=== PATIENT | female | born 1955 | race Caucasian/White ===

== ENCOUNTER 2017-12-30 04:34 | Inpatient (IN) | payer BC, OTHER ==
[2017-12-30] MEDS ORDERED: Ondansetron ODT 8 MG TAB ONE (05:04)
[2017-12-30 05:19] LABS: #Eosinphils 0.1 thou/uL (0.0-0.7); #Lymphocytes 0.9 thou/uL (1.20-3.40); #Monocytes 0.5 thou/uL (0.11-0.59); %Basophils 0.7 % (0.0-1.0); %Eosinophils 0.9 % (0.0-10.0); %Lymphocytes 13.9 % (21.0-51.0); %Neutrophils 77.5 % (42.0-75.0); Hemoglobin 14.4 g/dL (12.0-16.0); Mean Corpuscular Hemoglobin 32.9 pg (27.0-31.0); Mean Corpuscular Volume 96.8 fL (78.0-98.0); Mean Platelet Volume 8.2 fL (7.4-10.4); Platelet Count 189 thou/uL (130-400); RBC Distribution Width 12.9 % (11.5-14.5); Red Blood Cell (RBC) Count 4.37 mill/uL (4.20-5.40); White Blood Cell (WBC) Count 6.4 thou/uL (4.8-10.8)
[2017-12-30 05:42] LABS: ALT (SGPT) 61 U/L (8-55); AST (SGOT) 50 U/L (5-34); Albumin 4.2 g/dL (3.5-5.0); Alkaline Phosphatase 88 U/L (40-150); Anion Gap 14 mmol/L (10-20); BUN (Urea Nitrogen) 14 mg/dL (9.8-20.1); Bilirubin, Total 1.4 mg/dL (0.2-1.2); Calc. Creatinine Clearance 0 mL/min (70-130); Calcium 10.1 mg/dL (7.8-10.44); Carbon Dioxide 25 mmol/L (22-29); Chloride 105 mmol/L (98-107); Estimated GFR-MDRD 75; Globulin 3.1 g/dL (2.4-3.5); Glucose 143 mg/dL (70-105); Lipase 20 U/L (8-78); Potassium 4.2 mmol/L (3.5-5.1); Protein, Total 7.3 g/dL (6.0-8.3); Sodium 140 mmol/L (136-145)
[2017-12-30 06:30] LABS: Bilirubin Negative (Negative); Blood, Urine Negative (Negative); Clarity CLEAR (Clear); Glucose, Urine (Dipstick) Negative (Negative); Leukocyte Negative (Negative); Nitrite Negative (Negative); Protein, Urine (Dipstick) Negative (Neg-Trace); Specific Gravity, Urine 1.031 (1.002-1.036); Urobilinogen 0.2 mg/dL (0.2-1.0)
[2017-12-30] MEDS ORDERED: Lidocaine Viscous Sol 2% 15 ml UD Cup ONE (07:27)
[2017-12-30] MEDS ORDERED: Promethazine HCl 25 MG/ML VIAL ONE (08:19)
[2017-12-30] MEDS ORDERED: Ondansetron HCl/PF 4 MG/2 ML Vial IVP PRN ×2 (09:05→13:32)
[2017-12-30] MEDS ORDERED: Ondansetron ODT 4 MG TAB SL PRN (09:05)
[2017-12-30] MEDS ORDERED: Lactated Ringer's 1,000 ML IV SCH (09:15)
[2017-12-30 09:38] VITALS: BMI 24.7
--- NOTE | 2017-12-30 11:20 | CT ---
PRELIMINARY REPORT/[facility]/EMERGENTY AFTER-HOURS PROCEDURE CT Abdomen and Pelvis With Intravenous Contrast CLINICAL HISTORY: 62 years old, female; Pain; Abdominal pain; Generalized; Patient HX: Abd pain onset last night 1800 - progressivley worse - HX of crohns - pt concerned she has an sbo - HX of sbo. TECHNIQUE: Axial computed tomography images of the abdomen and pelvis with intravenous contrast. Coronal reforma tted images were created and reviewed. COMPARISON: No relevant prior studies available. FINDINGS: Lung bases: No acute findings. ABDOMEN: Liver: Hepatic attenuation suggesting steatosis. Gallbladder and bile ducts: Cholecystectomy. Mild intra-and extrahepatic biliary ductal dilatation ma y be related. Pancreas: Normal. Spleen: Normal. Adrenals: Normal. Kidneys and ureters: Normal. Stomach and bowel: Several dilated loops of small bowel in the left abdomen with distal feculent cont ent and transition point in the left lower quadrant. Decompressed distal small bowel. Mostly decompre ssed colon. Minimal mesenteric fluid among the dilated loops. PELVIS: Appendix: Appendix not definitely identified. Cecal sutures noted. Several fecaliths noted within a f luid containing structure which appears to be the inferior cecum. Bladder: Unremarkable. Reproductive: Hysterectomy. ABDOMEN and PELVIS: Intraperitoneal space: Small amount of free fluid in the pelvis. No free air. Bones/joints: Unremarkable. No acute fracture. Soft tissues: Unremarkable. Vasculature: Unremarkable. Lymph nodes: Unremarkable. No enlarged lymph nodes. IMPRESSION: 1. Findings compatible with small bowel obstruction. 2. Fecaliths within a fluid containing structure in the right lower quadrant which appears to be the inferior cecum. Appendix not definitely identified. No surrounding inflammatory changes appreciated. Thank you for allowing us to participate in the care of your patient. Dictated and Authenticated by: Denis Graham MD 12/30/2017 6:28 AM Central Time ([place] & [place]) FINAL REPORT: ABDOMEN CT WITH CONTRAST PELVIC CT WITH CONTRAST: History: Abdominal pain. History of Crohn's disease. Evaluate for small bowel obstruction. Comparison: 10-10-16 FINDINGS: This report is in agreement with the preliminary report by [facility]. There is evidence of a small bowel ob struction. Small bowel obstruction appears to involve the proximal to mid small bowel loops. The tra nsition point appears to be somewhere in the left lower quadrant. The distal small bowel loops are de compressed. Persistent densities in the cecum which may represent fecalith. Appendix is surgically ab sent. Gallbladder is surgically absent. No abnormalities with regards to the solid organs. There is free fl uid in the pelvis. POS: [facility]
--- NOTE | 2017-12-30 13:28 | CON ---
REASON CHIEF COMPLAINT: Nausea, vomiting, midepigastric pain. HISTORY OF PRESENT ILLNESS: This is a 62-year-old female with a diagnosis of Crohn's disease who had to have an ileocecectomy for this about 20 years ago. She has also had at least one exploratory lap arotomy and several episodes of small-bowel obstruction. She says it happens about 2-3 times per yea r. She normally sees Dr. Filipe Victor. Her last bowel movement was yesterday. She just passed a carina le bit of flatus. She says there is no pain at this time. PAST MEDICAL HISTORY: Crohn's disease, migraine headaches. PAST SURGICAL HISTORY: She has had a right hemicolectomy or ileocecectomy, a laparotomy, cholecystec barbra, total abdominal hysterectomy. MEDICATIONS: Azathioprine, propranolol, sumatriptan. ALLERGIES: and PSYLLIUM. SOCIAL HISTORY: She is . 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 FAMILY HISTORY: Breast cancer in her mom. PHYSICAL EXAMINATION: VITAL SIGNS: Temperature 98.6, pulse 73, blood pressure 93/62. GENERAL: She is a well-developed, well-nourished female in no apparent distress. She has an NG tube in that is draining minimal. LUNGS: Clear. HEART: Regular rate and rhythm. ABDOMEN: Slightly distended, nontender, no palpable masses. LABORATORY AND X-RAY FINDINGS: Her white count is 6.4, H&H 14 and 42, platelet count 189. Electroly pa are fine. CT scan shows some minimal dilated small bowel with a transition zone in the left lowe r quadrant. ASSESSMENT: Probable Crohn's stricture versus adhesion. PLAN: Recommend GI consultation to optimize medical therapy, but she seems to be responding with non surgical treatment.
[2017-12-30] MEDS ORDERED: Sodium Chloride 0.9% 1,000 ML IV SCH (13:32)
[2017-12-30] MEDS ORDERED: Acetaminophen 1,000 MG in Premix Bag 1 BAG IVPB SCH ×2 (14:30→22:00)
[2017-12-30] MEDS: Potassium Chloride 10 MEQ in Dextrose 5 % And 0.9 % NaCl 1,000 ML IV SCH ×2 (14:39→23:57)
[2017-12-30] MEDS ORDERED: SUMAtriptan Succinate 6 MG/0.5 ML VIAL SC SCH (17:00)
[2017-12-30] MEDS ORDERED: SUMATRIPTAN 6 MG SC SCH (17:00)
[2017-12-30] MEDS: Famotidine/PF 20 mg/2ml Vial SLOW IVP SCH (20:36)
--- NOTE | 2017-12-31 01:12 | CON ---
DATE OF CONSULTATION: 12/30/2017 HISTORY OF PRESENT ILLNESS: Patient is a 62-year-old female well known to me from a long h istory of Crohn disease. She was in her normal state of health until the day prior to admission when she developed diffuse abdominal bloating and discomfort. She had one episode of vomiting prior to c oming to the hospital. She has not lost any weight. She had no melena, hematochezia, no hematemesis . PAST MEDICAL HISTORY: Includes Crohn disease, migraine headaches, ileocolonic stricture with recent dilatation in 06/2017. PAST SURGICAL HISTORY: Right hemicolectomy, cholecystectomy, hysterectomy. MEDICATIONS: Azathioprine, propranolol. ALLERGIES: Include PSYLLIUM and . SOCIAL HISTORY: She is . She does not smoke or drink. FAMILY HISTORY: Negative for GI or liver disease. REVIEW OF SYSTEMS: Constitutional: No fever, chills, no weight loss. Eyes: No blurred vision or d ouble vision. ENT: No sore throat or earaches. Cardiovascular: No chest pain or palpitations. Pu lmonary: No shortness of breath, cough or wheezing. Gastrointestinal: See above. : No hematuri a or dysuria. Musculoskeletal: No joint pain. Neurologic: No numbness or seizure activity. Skin: No rashes. PHYSICAL EXAMINATION: GENERAL: Shows an ill-appearing white female in no acute distress. VITAL SIGNS: Temperature 98.8, pulse 65, respiratory rate 16, blood pressure 105/67. HEENT: Significant for nasogastric tube in right naris. NECK: Supple. CHEST: Clear. CARDIOVASCULAR: Regular rate and rhythm. ABDOMEN: Soft. Diffusely tender and slightly protuberant, some tympany. Bowel sounds are present. RECTAL: Deferred. EXTREMITIES: Normal. NEUROLOGIC: Nonfocal. LABORATORY DATA: Shows essentially normal CBC. Chemistries shows glucose 143, total bilirubin of 1. 4, AST of 50, ALT of 61. Urinalysis is normal. IMAGING: CT abdomen and pelvis shows findings consistent with a small-bowel obstruction, which seems to involve the left abdomen. There is decompressed small bowel distally. ASSESSMENT: 1. Small-bowel obstruction. 2. Crohn disease. 3. History of ileocolonic anastomotic stricture. 4. Migraine headaches. RECOMMENDATIONS: 1. Gastrografin small bowel series tomorrow. 2. This will dictate further management.
[2017-12-31 05:15] LABS: #Eosinphils 0.1 thou/uL (0.0-0.7); #Monocytes 0.3 thou/uL (0.11-0.59); #Neutrophils 1.8 thou/uL (1.40-6.50); %Basophils 1.1 % (0.0-1.0); %Eosinophils 3.6 % (0.0-10.0); %Lymphocytes 31.5 % (21.0-51.0); %Monocytes 9.8 % (0.0-10.0); Hemoglobin 12.3 g/dL (12.0-16.0); Mean Corpuscular HGB CONC 33.1 g/dL (32.0-36.0); Mean Corpuscular Hemoglobin 33.3 pg (27.0-31.0); Mean Platelet Volume 8.6 fL (7.4-10.4); Platelet Count 142 thou/uL (130-400); RBC Distribution Width 12.8 % (11.5-14.5); Red Blood Cell (RBC) Count 3.68 mill/uL (4.20-5.40); White Blood Cell (WBC) Count 3.3 thou/uL (4.8-10.8)
[2017-12-31] MEDS ORDERED: SUMATRIPTAN 6 MG/0.5 ML SC SCH (06:00)
[2017-12-31] MEDS: Potassium Chloride 10 MEQ in Dextrose 5 % And 0.9 % NaCl 1,000 ML IV SCH ×3 (06:10→20:55)
[2017-12-31 06:40] LABS: Anion Gap 6 mmol/L (10-20); BUN (Urea Nitrogen) 7 mg/dL (9.8-20.1); Calc. Creatinine Clearance 91 mL/min (70-130); Calcium 8.4 mg/dL (7.8-10.44); Carbon Dioxide 26 mmol/L (22-29); Chloride 111 mmol/L (98-107); Estimated GFR-MDRD 88; Glucose 110 mg/dL (70-105); Potassium 3.4 mmol/L (3.5-5.1); Sodium 140 mmol/L (136-145)
[2017-12-31] MEDS ORDERED: MD-Gastroview 120 ML BOT ONE (10:05)
[2017-12-31] MEDS: Famotidine/PF 20 mg/2ml Vial SLOW IVP SCH ×2 (11:51→20:56)
--- NOTE | 2017-12-31 12:45 | RAD ---
SMALL BOWEL FOLLOW THROUGH: 12/31/2017 HISTORY: Small bowel obstruction. COMPARISON: 10/11/2016 FINDINGS: [facility] [employer] imaging demonstrates a nasogastric tube terminating in the mid upper abdomen. Multiple rounded calcific densities overly the right lower quadrant, likely in the region of the cecum. The patient was administered Gastrografin via the nasogastric tube. the contrast media on immediate post injecti on imaging extends to the mid small bowel. By 15 minutes, there is contrast media throughout the sma ll bowel and contrast media has reached the colon by 30 minutes. IMPRESSION: Rapid transit of the Gastrografin from the stomach to the colon within 30 minutes. No evidence for b owel obstruction. POS: [facility]
--- NOTE | 2017-12-31 13:16 | PDOC.PN ---
- Subjective Encounter Start Date: 12/31/17 Encounter Start Time: 11:40 Subjective: no abd pain or nausea -: is passing flatus but no bm yet - Objective Resuscitation Status: Resuscitation Status FULL:Full Resuscitation MAR Reviewed: Yes Vital Signs & Weight: Vital Signs (12 hours) Temp Pulse Resp BP BP Pulse Ox 12/31/17 11:53 97.9 F 102 H 16 115/72 99 12/31/17 08:00 98.7 F 68 16 97 12/31/17 07:51 98.7 F 68 16 96/65 97 12/31/17 05:42 98.1 F 77 20 113/74 96 Weight Admit Weight 143 lb 14.4 oz Weight 143 lb 14.4 oz I&O: 12/30/17 12/31/17 01/01/18 06:59 06:59 06:59 Intake Total 1913 Output Total 250 Balance 1663 Result Diagrams: 12/31/17 04:02 12/31/17 04:02 Phys Exam - Physical Examination HEENT: PERRLA, moist MMs Neck: no JVD, supple Respiratory: no wheezing, no rales Cardiovascular: RRR, no significant murmur Gastrointestinal: soft, non-tender, positive bowel sounds Musculoskeletal: no edema, pulses present Neurological: non-focal, moves all 4 limbs Psychiatric: normal affect, A&O x 3 Dx/Plan (1) Small bowel obstruction Code(s): K56.69 - OTHER INTESTINAL OBSTRUCTION * DO NOT USE * Status: Acute (2) Crohns disease Code(s): K50.90 - CROHN'S DISEASE, UNSPECIFIED, WITHOUT COMPLICATIONS Status: Chronic Comment: prior ?right hemicolectomy (3) h/o ileocolic stricture Status: Chronic - Plan gastrograffin is -ve for sbo -: diet per GI advice, suggest start full liq -: iv fluids, morphine prn -: dc plan home in am if stable -: kdur x1 40meq * . Review of Systems - Medications/Allergies Allergies/Adverse Reactions: Allergies Allergy/AdvReac Type Severity Reaction Status Date / Time atropine sulfate Allergy Verified 10/10/16 20:08 [From ] dextrose [From Metamucil] Allergy Verified 10/10/16 20:08 hyoscyamine sulfate Allergy Verified 10/10/16 20:08 [From ] phenobarbital [From ] Allergy Verified 10/10/16 20:08 psyllium husk Allergy Verified 10/10/16 20:08 [From Metamucil] psyllium seed Allergy Verified 10/10/16 20:08 [From Metamucil] scopolamine hydrobromide Allergy Verified 10/10/16 20:08 [From ] sucrose [From Metamucil] Allergy Verified 10/10/16 20:08 Medications: Current Medications Famotidine (Pepcid) 20 mg SLOW IVP Q12HR [facility] Last Admin: 12/31/17 11:51 Dose: 20 mg Potassium Chloride 10 meq/ (Dextrose/Sodium Chloride) 1,005 mls @ 125 mls/hr IV .Q8H3M [facility] Last Admin: 12/31/17 08:05 Dose: 1,005 mls Morphine Sulfate (Morphine) 2 mg SLOW IVP Q4H PRN PRN Reason: Pain Ondansetron HCl (Zofran) 4 mg IVP Q6H PRN PRN Reason: Nausea/Vomiting Last Admin: 12/31/17 11:51 Dose: 4 mg
[2017-12-31] MEDS ORDERED: Potassium Chloride 20 MEQ TAB PO SCH (13:30)
--- NOTE | 2017-12-31 13:34 | PRG ---
DATE OF SERVICE: 12/31/2017 SUBJECTIVE: The patient is feeling better. She had multiple bowel movements after drinking Gastrogr afin. She has had no nausea or vomiting. OBJECTIVE: VITAL SIGNS: Temperature 97.9, pulse 102, respiratory rate 16, blood pressure 115/72. CHEST: Clear. CARDIOVASCULAR: Regular rate and rhythm. ABDOMEN: Soft, nontender, without organomegaly or masses. LABORATORY DATA: Shows a white blood cell count 3.3, hemoglobin 12.3, hematocrit 37.0, potassium 3.4 . The small bowel series showed a quick transit of the Gastrografin, no bowel obstruction. ASSESSMENT: 1. Small-bowel obstruction - resolved. 2. Crohn's disease. PLAN: 1. Begin clear liquids, advance as tolerated. 2. Home tomorrow morning if tolerating diet.
[2018-01-01 04:48] LABS: #Eosinphils 0.1 thou/uL (0.0-0.7); #Lymphocytes 1.1 thou/uL (1.20-3.40); #Monocytes 0.4 thou/uL (0.11-0.59); #Neutrophils 1.5 thou/uL (1.40-6.50); %Basophils 1.3 % (0.0-1.0); %Eosinophils 3.7 % (0.0-10.0); %Lymphocytes 34.1 % (21.0-51.0); %Monocytes 11.3 % (0.0-10.0); %Neutrophils 49.7 % (42.0-75.0); Hemoglobin 11.4 g/dL (12.0-16.0); Mean Corpuscular HGB CONC 33.5 g/dL (32.0-36.0); Mean Corpuscular Volume 98.6 fL (78.0-98.0); Mean Platelet Volume 7.8 fL (7.4-10.4); Platelet Count 140 thou/uL (130-400); RBC Distribution Width 12.8 % (11.5-14.5); Red Blood Cell (RBC) Count 3.46 mill/uL (4.20-5.40); White Blood Cell (WBC) Count 3.1 thou/uL (4.8-10.8)
[2018-01-01 04:56] LABS: Anion Gap 9 mmol/L (10-20); BUN (Urea Nitrogen) 4 mg/dL (9.8-20.1); Calc. Creatinine Clearance 95 mL/min (70-130); Calcium 8.8 mg/dL (7.8-10.44); Carbon Dioxide 25 mmol/L (22-29); Chloride 113 mmol/L (98-107); Estimated GFR-MDRD Greater than 90; Glucose 104 mg/dL (70-105); Potassium 3.9 mmol/L (3.5-5.1); Sodium 143 mmol/L (136-145)
[2018-01-01] MEDS: Potassium Chloride 10 MEQ in Dextrose 5 % And 0.9 % NaCl 1,000 ML IV SCH (06:05)
--- NOTE | 2018-01-01 06:08 | PDOC.EVN ---
Event Note - Event Note Event Note: H&P dictated, admit for abd pain, n/V, abd distention, similar to past SBO episdoes. NGT placed in ER, feeling much better. Seen gy Dr Amor - recommended GI consult and he ordered
[2018-01-01] MEDS: Famotidine/PF 20 mg/2ml Vial SLOW IVP SCH (08:30)
[2018-01-01] MEDS ORDERED: AZATHIOPRINE 100 MG PO SCH (09:00)
[2018-01-01] MEDS ORDERED: Propranolol HCl LA 60 MG CAP PO SCH (09:00)
[2018-01-01] MEDS ORDERED: azaTHIOprine 50 MG TAB PO SCH (09:00)
--- NOTE | 2018-01-01 10:52 | PDOC.PN ---
- Subjective Encounter Start Date: 01/01/18 Encounter Start Time: 07:40 Subjective: is passing liq stools, no nausea -: tolerating oral diet - Objective Resuscitation Status: Resuscitation Status FULL:Full Resuscitation MAR Reviewed: Yes Vital Signs & Weight: Vital Signs (12 hours) Temp Pulse Resp BP Pulse Ox 01/01/18 08:00 98.0 F 57 L 16 108/56 L 98 01/01/18 07:27 98.0 F 57 L 16 96 01/01/18 04:35 98.1 F 60 16 98/62 96 Weight Admit Weight 143 lb 14.4 oz Weight 143 lb 14.4 oz I&O: 12/31/17 01/01/18 01/02/18 06:59 06:59 06:59 Intake Total 1913 3900 Output Total 250 Balance 1663 3900 Result Diagrams: 01/01/18 04:31 01/01/18 04:31 Phys Exam - Physical Examination HEENT: PERRLA, moist MMs Neck: no JVD, supple Respiratory: no wheezing, no rales Cardiovascular: RRR, no significant murmur Gastrointestinal: soft, non-tender, no distention, positive bowel sounds Musculoskeletal: no edema, pulses present Neurological: non-focal, moves all 4 limbs Psychiatric: normal affect, A&O x 3 Dx/Plan (1) Small bowel obstruction Code(s): K56.69 - OTHER INTESTINAL OBSTRUCTION * DO NOT USE * Status: Acute (2) Crohns disease Code(s): K50.90 - CROHN'S DISEASE, UNSPECIFIED, WITHOUT COMPLICATIONS Status: Chronic Comment: prior ?right hemicolectomy (3) h/o ileocolic stricture Status: Chronic - Plan hemostable -: dc pt home -: to f/u with in 4 weeks * . Review of Systems - Medications/Allergies Allergies/Adverse Reactions: Allergies Allergy/AdvReac Type Severity Reaction Status Date / Time atropine sulfate Allergy Verified 10/10/16 20:08 [From ] dextrose [From Metamucil] Allergy Verified 10/10/16 20:08 hyoscyamine sulfate Allergy Verified 10/10/16 20:08 [From ] phenobarbital [From ] Allergy Verified 10/10/16 20:08 psyllium husk Allergy Verified 10/10/16 20:08 [From Metamucil] psyllium seed Allergy Verified 10/10/16 20:08 [From Metamucil] scopolamine hydrobromide Allergy Verified 10/10/16 20:08 [From ] sucrose [From Metamucil] Allergy Verified 10/10/16 20:08 Medications: Current Medications Azathioprine (Imuran) 100 mg PO DAILY [facility] Last Admin: 01/01/18 08:33 Dose: 100 mg Famotidine (Pepcid) 20 mg SLOW IVP Q12HR [facility] Last Admin: 01/01/18 08:30 Dose: 20 mg Potassium Chloride 10 meq/ (Dextrose/Sodium Chloride) 1,005 mls @ 125 mls/hr IV .Q8H3M [facility] Last Admin: 01/01/18 06:05 Dose: Not Given Morphine Sulfate (Morphine) 2 mg SLOW IVP Q4H PRN PRN Reason: Pain Ondansetron HCl (Zofran) 4 mg IVP Q6H PRN PRN Reason: Nausea/Vomiting Last Admin: 12/31/17 11:51 Dose: 4 mg Propranolol HCl (Inderal La) 60 mg PO DAILY [facility] Last Admin: 01/01/18 08:31 Dose: 60 mg Sodium Chloride (Flush - Normal Saline) 10 ml IVF Q12HR [facility] Last Admin: 01/01/18 08:32 Dose: 10 ml Sodium Chloride (Flush - Normal Saline) 10 ml IVF PRN PRN PRN Reason: Saline Flush
[2018-01-01 12:13] VITALS: BP 102/66; TEMP 98.2
--- NOTE | 2018-01-02 02:18 | DIS ---
DATE OF ADMISSION: 12/30/2017 DATE OF DISCHARGE: 01/01/2018 DISCHARGE DISPOSITION: To home. PRIMARY DISCHARGE DIAGNOSES: Small-bowel obstruction, resolved, history of Crohn's disease with prior right hemicolectomy and ileocolic stricture. PROCEDURES DONE DURING HOSPITALIZATION: Abdominal and pelvic CAT scan done on the showed signs of small-bowel obstruction with transition point to be somewhere in the left lower quadrant, small bowel. Follow through x-ray done on 12/31/2017 showed rapid transit of Gastrografin from stomach to colon within 30 minutes. No evidence of bowel obstruction was seen. H&H 11 and 34, platelet count 140, white count of 3.1, MCV is 98. Discharge BUN and creatinine 4 and 0.6. INPATIENT CONSULTS: Dr. Amor for General Surgery, Dr. Victor for Gastroenterology. DISCHARGE MEDICATIONS: 1. Azathioprine 100 mg p.o. daily, propranolol extended release 60 mg p.o. daily, sumatriptan p.r.n. for migraine. ALLERGIES: ATROPINE, DEXTROSE, HYOSCYAMINE, PHENOBARBITAL, PSYLLIUM HUSK and SEED. DISCHARGE PLAN: The patient to follow up with Dr. Victor as advised and primary care physician in 1 week. BRIEF COURSE DURING HOSPITALIZATION: The patient initially came to ER on the with complaints of abdominal pain, which was cramping in nature. She has had prior history of bowel obstruction with history of Crohn's disease and prior abdominal surgery. A CT abdomen done in the ER revealed small-bowel obstruction. Dr. Amor was consulted from ER and Dr. Newman from [facility] was called for admission. She was kept n.p.o. and was placed on IV fluids. She has had consultation with Dr. Amor as well for General Surgery and Dr. Victor for Gastroenterology. Patient was passing flatus for the initial 24 hours. She has had a small bowel followed through x-ray done on the , which showed good transit of contrast into colon. The patient had 3-4 loose bowel movements after the follow-through x-ray. She was placed on oral diet and has been tolerating it well. She is also ambulating and eating well. She will be shortly discharged home if cleared by Dr. Victor. Please see a face- to-face documentation on [facility] for the day of discharge. [facility]
== END 2018-01-01 12:52 | disposition home or self-care (01) | DRG 386 ==
LOC: ERS 04:34 → T4-B 08:40
PROVIDERS: ADMIT Internal Medicine Infectious Disease; ATTEND Internal Medicine Infectious Disease
PROC: BD13YZZ Fluoroscopy of Small Bowel using Other Contrast (ICD-10-PCS; principal; 2017-12-31)
DX: K50.912 Crohn's disease, unspecified, with intestinal obstruction (principal); G43.909 Migraine, unspecified, not intractable, without status migrainosus; Z98.0 Intestinal bypass and anastomosis status; Z90.49 Acquired absence of other specified parts of digestive tract
CPT/HCPCS: 36415; 74177; 74250; 80048; 80053; 81003; 83690; 85025; 96361; 96374; 96375; A4216; J0131; J2270; J2405; J2550; J3030; J3480; J7042; J7500; S0028

== ENCOUNTER 2018-10-23 07:26 | Observation (INO) | payer BC ==
[2018-10-23 08:09] LABS: #Eosinphils 0.1 thou/uL (0.0-0.7); #Lymphocytes 1.4 thou/uL (1.20-3.40); #Monocytes 0.7 thou/uL (0.11-0.59); #Neutrophils 11.3 thou/uL (1.40-6.50); %Basophils 0.3 % (0.0-1.0); %Eosinophils 0.4 % (0.0-10.0); %Lymphocytes 10.1 % (21.0-51.0); %Monocytes 5.3 % (0.0-10.0); %Neutrophils 83.9 % (42.0-75.0); Hemoglobin 16.3 g/dL (12.0-16.0); Mean Corpuscular HGB CONC 33.5 g/dL (32.0-36.0); Mean Corpuscular Hemoglobin 32.5 pg (27.0-31.0); Mean Platelet Volume 8.5 fL (7.4-10.4); Platelet Count 226 thou/uL (130-400); RBC Distribution Width 13.2 % (11.5-14.5); White Blood Cell (WBC) Count 13.4 thou/uL (4.8-10.8)
[2018-10-23] MEDS ORDERED: Ondansetron PF 4 MG/2 ML Vial ONE (08:25)
[2018-10-23] MEDS ORDERED: Morphine 4 MG/ML VIAL ONE (08:34)
[2018-10-23 08:36] LABS: ALT (SGPT) 46 U/L (8-55); AST (SGOT) 41 U/L (5-34); Albumin 4.4 g/dL (3.4-4.8); Alkaline Phosphatase 95 U/L (40-150); Anion Gap 15 mmol/L (10-20); BUN (Urea Nitrogen) 16 mg/dL (9.8-20.1); Bilirubin, Total 1.2 mg/dL (0.2-1.2); Calc. Creatinine Clearance 0 mL/min (70-130); Calcium 10.3 mg/dL (7.8-10.44); Carbon Dioxide 21 mmol/L (23-31); Chloride 106 mmol/L (98-107); Estimated GFR-MDRD 75; Globulin 3.1 g/dL (2.4-3.5); Glucose 170 mg/dL (80-115); Lipase 18 U/L (8-78); Potassium 4.1 mmol/L (3.5-5.1); Protein, Total 7.5 g/dL (6.0-8.3); Sodium 138 mmol/L (136-145)
--- NOTE | 2018-10-23 09:31 | CT ---
Abdomen and pelvic CT scan with IV contrast: Lumbar spine CT scan with IV contrast Limited: HISTORY: Injury from a fall, abdominal pain, prior Crohn's disease COMPARISON: 12/30/2017, 05/06/2014 FINDINGS: The lung bases are clear. Minimal intraperitoneal fluid adjacent to the right lobe of the liver. Stat us post cholecystectomy with some dilatation of the common bile duct and intrahepatic ducts which appears to be somewhat worse than on the prior 2017 study. Small hiatal hernia. Pancreas spleen adren al glands are unremarkable. No renal calculus or obstruction. There is again noted be abnormally dilated small bowel with multiple remaining ossified opacities within the small bowel. There appears to be an ileal right colon anastomosis which appears to be quite narrowed. There is scattered gas and fecal material throughout the colon. These abnormal calcified opacities within the small bowel ar e less in number than dating back to 05/06/2014. IMPRESSION: Abnormal small bowel dilatation but showing little change from prior CTs dating back to 2013. Multipl e abnormal circumscribed concentric ossific opacities within the small bowel although somewhat less in number than on prior 2013 study. Postoperative anastomosis at the ileal cecal region which appears to be somewhat narrowed. Small hiatal hernia. Minimal ascites particularly around the right lobe of the liver. This is a new finding when compared to the prior 12/30/[address] scan with IV contrast Limited: IMPRESSION: Discogenic disease most marked at L2-L3 without evidence for acute fracture or dislocation.
[2018-10-23] MEDS ORDERED: Fentanyl 100 MCG/2 ML VIAL ONE (09:48)
[2018-10-23 09:57] LABS: Bilirubin Negative (Negative); Blood, Urine Trace (Negative); Glucose, Urine (Dipstick) Negative (Negative); Leukocyte Negative (Negative); Nitrite Negative (Negative); Protein, Urine (Dipstick) Negative (Neg-Trace); Urobilinogen 0.2 mg/dL (0.2-1.0); pH, Urine 7.5 (5.0-9.0)
[2018-10-23 09:58] LABS: Clarity Clear (Clear)
[2018-10-23 09:59] LABS: Specific Gravity, Urine 1.045 (1.002-1.036)
[2018-10-23 10:03] LABS: Bacteria/HPF None Seen HPF (None Seen); Hyaline Casts/LPF NONE SEEN LPF (0-3 Hyaline); Squamous Epithelial 0-3 HPF (0-3); WBC/HPF 0-3 HPF (0-3)
[2018-10-23] MEDS ORDERED: ISOVUE-370 76%-LOCM 1 ML ONE (10:42)
[2018-10-23] MEDS ORDERED: Lidocaine 2% Viscous Solution 10 ML, Aluminum & Magnesium Hydroxide 30 ML SSW SCH (11:00)
[2018-10-23] MEDS: Sodium Chloride 0.9% 1,000 ML IV SCH ×2 (11:14→21:30)
[2018-10-23] MEDS: Ondansetron PF 4 MG/2 ML Vial IVP PRN (11:14)
--- NOTE | 2018-10-23 11:18 | HP ---
PRIMARY CARE PROVIDER: Dr. Jonathon Vasquez. CHIEF COMPLAINT: Abdominal pain. HISTORY OF PRESENT ILLNESS: Ms. Crane is a pleasant 63-year-old lady, who was seen at [facility] on October 23, 2018. She reports that she has a history of Crohn disease. She also reports that she has a history of bowel obstructions. She reports that last night she started having burning sensation in the epigastric region. Around 2 a.m., she started vomiting. She reports vomiting 12 times. She denies any fevers or chills. She reports that the epigastric discomfort was 8/10 at its worst, nonradiating, no known aggravating or relieving factors. At the time of my examination, she reports that the sensation has resolved. REVIEW OF SYSTEMS: All other systems reviewed and found to be negative. PAST MEDICAL HISTORY: disease and migraine headaches. PAST SURGICAL HISTORY: Hemorrhoidectomy, cholecystectomy, hysterectomy, and partial small bowel resection. FAMILY HISTORY: No family history of premature coronary artery disease. SOCIAL HISTORY: The patient denies tobacco use, alcohol use, or recreational drug use. ALLERGIES: ATROPINE, DEXTROSE, , HYOSCYAMINE, METAMUCIL, PHENOBARBITAL, PSYLLIUM, SCOPOLAMINE, SUCROSE. CURRENT MEDICATIONS: 1. Propranolol 60 mg daily. 2. Azathioprine 100 mg daily. 3. Sumatriptan 100 mg as needed. PHYSICAL EXAMINATION: GENERAL: Ms. Crane is awake and alert, not in acute distress. VITAL SIGNS: Blood pressure is 123/73, pulse 72, respiratory rate 19, and oxygen saturation 99% on room air. She is afebrile. EYES: No scleral icterus. No conjunctival pallor. ENT: Dry mucosal membranes. No oropharyngeal erythema or exudates. NECK: Supple, nontender. Trachea is midline. RESPIRATORY: Accessory muscles of breathing are not active. Chest wall movements are symmetric bilaterally. Lungs are clear to auscultation without wheezes, rhonchi, or crepitations. CARDIOVASCULAR: S1 and S2 are heard, regular. Peripheral pulses palpable. No carotid bruit. No pericardial rub. ABDOMEN: Soft, mild epigastric tenderness. No guarding or rigidity. Bowel sounds are heard. No hepatomegaly. No splenomegaly. NEUROLOGIC: Cranial nerves 2 through 12 intact. Deep tendon reflexes 2+. MUSCULOSKELETAL: Power is 5/5 in all 4 extremities. SKIN: No rashes or subcutaneous nodules. LYMPHATIC: No cervical lymphadenopathy. PSYCHIATRIC: Normal mood. Normal affect. The patient is oriented to person, place, and time. LABORATORY DATA: Ms. Crane' labs and investigations were reviewed. She has leukocytosis with 13,400 white cells, of which 83% are neutrophils. Hemoglobin is elevated at 16.3. Platelet count is normal. Her last known hemoglobin was 11.4 on January 01, 2018. She has normal sodium, normal potassium, normal creatinine, mildly elevated AST of 41, otherwise unremarkable liver profile and elevated lactic acid level of 2.7. Urinalysis is negative for nitrite and leukocyte esterase. She also had CT scan of the abdomen and pelvis, which showed abnormal small-bowel dilatation, but little change from prior CTs dating back to 2013. She has minimal ascites, particularly around the right lobe of the liver. She also has multiple abnormal circumscribed concentric ossific opacities within the small bowel, somewhat less in number than a study from 2014. ASSESSMENT AND PLAN: Ms. Crane is a pleasant 63-year-old lady, who was seen at [facility] on October 23, 2018. Her problem list includes: 1. Abdominal pain: Etiology is unclear. The pain has resolved at this time. The patient reports having a bowel movement last night. There is no evidence of bowel obstruction on CT scan. We will admit her to hospital on observation status and start her on clear fluid diet. Most likely etiology of abdominal pain appears to be gastritis, most likely viral. We will provide intravenous hydration until the patient's oral intake improves. 2. Migraine: The patient has a history of migraine headaches. This appears to be stable. We will start sumatriptan p.r.n. as she takes at home. 3. Leukocytosis: Etiology is unclear. The patient is afebrile. No evidence of infection We will also check chest x-ray. Many thanks for allowing me to participate in your patient's care. Please feel free to contact me with any questions or concerns. LEVEL OF RISK: Moderate. LEVEL OF COMPLEXITY: Moderate. Job ID: [id number]
[2018-10-23 11:23] VITALS: BMI 24.9
--- NOTE | 2018-10-23 11:25 | RAD ---
CHEST 2 VIEWS: Date: 10/23/18 HISTORY: Crohn's disease, vomiting, and abdominal pain. FINDINGS: Heart size is within normal limits. The lungs are clear of acute process. Mild biapical pleural thick ening. IMPRESSION: No acute intrathoracic disease. Atherosclerosis of aorta. Stable from prior study. POS: [facility]
[2018-10-23] MEDS ORDERED: Lidocaine 2% Viscous Solution 20 ML, Aluminum & Magnesium Hydroxide 30 ML SSW SCH (12:00)
[2018-10-23 12:41] LABS: Lactic Acid 0.9 mmol/L (0.5-2.2)
[2018-10-23] MEDS: Acetaminophen 325 MG TAB PO PRN ×2 (19:20→23:43)
[2018-10-24 06:33] LABS: #Eosinphils 0.1 thou/uL (0.0-0.7); #Lymphocytes 1.4 thou/uL (1.20-3.40); #Monocytes 0.8 thou/uL (0.11-0.59); #Neutrophils 3.8 thou/uL (1.40-6.50); %Basophils 0.6 % (0.0-1.0); %Eosinophils 1.9 % (0.0-10.0); %Lymphocytes 23.5 % (21.0-51.0); %Monocytes 12.3 % (0.0-10.0); %Neutrophils 61.7 % (42.0-75.0); Hemoglobin 13.7 g/dL (12.0-16.0); Mean Corpuscular HGB CONC 33.3 g/dL (32.0-36.0); Mean Corpuscular Hemoglobin 33.1 pg (27.0-31.0); Mean Corpuscular Volume 99.4 fL (78.0-98.0); Mean Platelet Volume 8.5 fL (7.4-10.4); Platelet Count 166 thou/uL (130-400); RBC Distribution Width 13.1 % (11.5-14.5); Red Blood Cell (RBC) Count 4.14 mill/uL (4.20-5.40); White Blood Cell (WBC) Count 6.1 thou/uL (4.8-10.8)
[2018-10-24 06:43] LABS: Anion Gap 9 mmol/L (10-20); BUN (Urea Nitrogen) 8 mg/dL (9.8-20.1); Calc. Creatinine Clearance 89 mL/min (70-130); Calcium 8.3 mg/dL (7.8-10.44); Carbon Dioxide 24 mmol/L (23-31); Chloride 111 mmol/L (98-107); Estimated GFR-MDRD 86; Glucose 92 mg/dL (80-115); Potassium 3.8 mmol/L (3.5-5.1); Sodium 140 mmol/L (136-145)
[2018-10-24] MEDS: Sodium Chloride 0.9% 1,000 ML IV SCH (07:40)
[2018-10-24] MEDS: Acetaminophen 325 MG TAB PO PRN ×2 (07:41→11:46)
[2018-10-24] MEDS: Ondansetron PF 4 MG/2 ML Vial IVP PRN (07:41)
[2018-10-24 12:22] VITALS: BP 121/69; TEMP 98
[2018-10-24] MEDS ORDERED: Simethicone Chewable 80 MG TAB PO SCH (13:00)
== END 2018-10-24 15:49 | disposition home or self-care (01) ==
LOC: ERS 07:26 → 2SW 11:09
PROVIDERS: ADMIT Internal Medicine; ATTEND Internal Medicine
DX: R10.13 Epigastric pain (principal); G43.909 Migraine, unspecified, not intractable, without status migrainosus; K50.90 Crohn's disease, unspecified, without complications; D72.829 Elevated white blood cell count, unspecified; Z88.8 Allergy status to other drugs, medicaments and biological substances; Z79.899 Other long term (current) drug therapy
CPT/HCPCS: 36415; 71046; 74177; 80048; 80053; 81003; 81015; 83605; 83690; 85025; 96361; 96374; 96375; 96376; G0378; J2270; J2405; J3010; Q9966

== ENCOUNTER 2019-01-21 23:00 | Inpatient (IN) | payer BC ==
[2019-01-21] MEDS ORDERED: Morphine 2 MG/ML SYRINGE ONE (23:17)
[2019-01-21] MEDS ORDERED: Ondansetron PF 4 MG/2 ML Vial ONE (23:17)
[2019-01-21 23:24] LABS: Bacteria/HPF None Seen HPF (None Seen); Bilirubin Negative (Negative); Blood, Urine 1+ (Negative); Clarity Clear (Clear); Glucose, Urine (Dipstick) Normal (Negative); Leukocyte Negative Leu/uL (Negative); Nitrite Negative (Negative); Protein, Urine (Dipstick) 20 mg/dL (Neg-Trace); Urobilinogen Normal mg/dL (Less than 2); WBC/HPF 0-3 HPF (0-3)
[2019-01-21] MEDS ORDERED: Fentanyl 100 MCG/2 ML VIAL ONE (23:51)
[2019-01-22] LABS: #Eosinphils 0.1 thou/uL (0.0-0.7); #Monocytes 0.5 thou/uL (0.11-0.59); %Basophils 0.3 % (0.0-1.0); %Eosinophils 1.3 % (0.0-10.0); %Lymphocytes 11.1 % (21.0-51.0); %Neutrophils 81.3 % (42.0-75.0); Hemoglobin 15.8 g/dL (12.0-16.0); Mean Corpuscular HGB CONC 33.4 g/dL (32.0-36.0); Mean Corpuscular Hemoglobin 32.8 pg (27.0-31.0); Mean Corpuscular Volume 98.2 fL (78.0-98.0); Mean Platelet Volume 8.2 fL (7.4-10.4); Platelet Count 198 thou/uL (130-400); RBC Distribution Width 13.3 % (11.5-14.5); Red Blood Cell (RBC) Count 4.83 mill/uL (4.20-5.40); White Blood Cell (WBC) Count 8.6 thou/uL (4.8-10.8)
[2019-01-22 00:11] LABS: ALT (SGPT) 30 U/L (8-55); AST (SGOT) 28 U/L (5-34); Albumin 4.4 g/dL (3.4-4.8); Alkaline Phosphatase 100 U/L (40-150); Anion Gap 14 mmol/L (10-20); BUN (Urea Nitrogen) 11 mg/dL (9.8-20.1); Bilirubin, Total 1.6 mg/dL (0.2-1.2); Calc. Creatinine Clearance 0 mL/min (70-130); Calcium 9.8 mg/dL (7.8-10.44); Carbon Dioxide 23 mmol/L (23-31); Chloride 104 mmol/L (98-107); Estimated GFR-MDRD 73; Globulin 2.7 g/dL (2.4-3.5); Glucose 107 mg/dL (80-115); Potassium 3.7 mmol/L (3.5-5.1); Protein, Total 7.1 g/dL (6.0-8.3); Sodium 137 mmol/L (136-145)
[2019-01-22] MEDS ORDERED: Ondansetron PF 4 MG/2 ML Vial ONE (00:39)
[2019-01-22] MEDS ORDERED: Promethazine HCl 25 MG/ML VIAL ONE (00:54)
[2019-01-22] MEDS ORDERED: Benzocaine 20% Spray 60 ML CAN ONE (02:47)
[2019-01-22] MEDS ORDERED: Fentanyl 100 MCG/2 ML VIAL ONE (03:31)
[2019-01-22] MEDS ORDERED: Acetaminophen 650 MG Suppository PR PRN (05:33)
[2019-01-22] MEDS ORDERED: Ondansetron PF 4 MG/2 ML Vial IVP PRN (05:33)
[2019-01-22] MEDS ORDERED: Ondansetron ODT 4 MG TAB PO PRN (05:33)
[2019-01-22 05:43] VITALS: BMI 25.2
[2019-01-22] MEDS ORDERED: Fentanyl 100 MCG/2 ML VIAL SLOW IVP PRN (06:00)
--- NOTE | 2019-01-22 06:46 | HP ---
PRIMARY CARE PHYSICIAN: Dr. Jonathon Vasquez. CODE STATUS: Full code. TIME OF EVALUATION: 2:40 a.m. HISTORY OF PRESENT ILLNESS: This is a 63-year-old female patient with past medical history of Crohn disease, came to the hospital after having severe abdominal pain with no clear triggers. No alleviating factors. The pain started around 4 p.m. or 5 p.m. it is diffuse in the abdomen, but start mostly in the epigastric area radiating to the rest of the abdomen associated with nausea. REVIEW OF SYSTEMS: CONSTITUTIONAL: No fever, chills, or generalized weakness. RESPIRATORY: No cough, sputum production, or shortness of breath. CARDIOVASCULAR: No chest pain. GASTROINTESTINAL: The patient has nausea, vomiting, and abdominal pain, very severe as described in HPI. UTILITY SALES REPRESENTATIVE: No dizziness, headache, or feeling lightheaded. GENITOURINARY: No burning on urination. EXTREMITIES: No leg swelling reported in the extremities. All other systems were reviewed and negative except for the findings mentioned above. PAST MEDICAL HISTORY: Positive for Crohn disease and migraines. PAST SURGICAL HISTORY: Bowel resection, hemorrhoidectomy, cholecystectomy, hysterectomy, bladder mesh removal. PSYCHIATRIC HISTORY: No previous psych history. FAMILY HISTORY: Reviewed, noncontributory to current presentation SOCIAL HISTORY: The patient drinks socially. She denies any drug use. No smoking history. KNOWN ALLERGIES: , Metamucil, morphine, psyllium. REPORTED MEDICATIONS: 1. Propranolol. 2. Azathioprine. 3. Sumatriptan. 4. Estroven Energy. 5. Probiotic. 6. Centrum Silver. 7. Biotin. 8. Vitamin D3. PHYSICAL EXAMINATION: VITAL SIGNS: Blood pressure 136/86, heart rate 73, respiratory rate was 16, temperature 98.9, pain 5/10, oxygen saturation was 96% on room air. GENERAL: The patient is alert, oriented, in no acute distress HEENT: Eyes, normal conjunctivae. Moist oral mucosa. Anicteric. No JVD. RESPIRATORY: Bilateral air entry. No rales. No wheezing. Symmetric expansion. CARDIOVASCULAR: Normal rate, regular rhythm. No murmurs. No gallop. No edema. ABDOMEN: Soft, mildly distended. Normal bowel sounds with severe tenderness, only improved with IV pain medications. MUSCULOSKELETAL: Baseline range of motion and strength. SKIN: Warm and intact. No pallor. No rash. No redness. Capillary refill seems to be intact. NEUROLOGIC: No evidence of any new focal weakness. Cranial nerves seems to be intact. PSYCHIATRIC: The patient is in good mood. No anxiety. Optimal judgment. RADIOLOGY DATA: Abdomen and pelvis CT showed extensive distal small-bowel muscle enhancement, and proximal colonic mucosal enhancement, and fluid distention suggestive of IBD, small amount of free fluid in the lower abdomen and pelvis, and interloop fluid. LABORATORY DATA: Labs were reviewed. The patient has white count 9.6, hemoglobin 15.8, MCV 98.2, platelet count 198. Chemistry; sodium 137, potassium 3.7, chloride 104, carbon dioxide 23, anion gap 14, BUN 11, creatinine 0.8, GFR 73, glucose 107, lactic acid 0.8, calcium 9.8, total bilirubin 1.6. LFTs were negative. Albumin 4.4. Urine was done and showed no white counts, few erythrocytes. ASSESSMENT AND PLAN: The patient will be placed in the hospital with the following medical problems: 1. Crohn disease flare up. The patient has severe abdominal pain. CAT scan did show findings compatible with this diagnosis. The patient will be started on Solu-Medrol 60 mg daily due to severity of illness. We will consult GI. We will follow recommendations. No evidence of acute infection as of now. The patient has no diarrhea. As noted, the patient has serious complication in the past leading to colon resection. 2. History of migraines, reconcile home medications, adjust treatment as needed. 3. Deep venous thrombosis prophylaxis. Job ID: [id number] MTDD
--- NOTE | 2019-01-22 07:38 | CT ---
PRELIMINARY REPORT/[facility]/EMERGENCY AFTER HOURS PROCEDURE: EXAM: CT Abdomen and Pelvis With Contrast EXAM DATE/TIME: 01/22/2019 1:25 AM CLINICAL HISTORY: 63 years old, female; Abdominal pain; Generalized; Prior surgery; Surgery date: 6+ months; Surgery type: Pt's abd surgical HX includes bowel resection, cholecystectomy, hysterectomy, and possibly appendectomy; Patient HX: 63 y/o F, with h/o chron' s dz, presents to ED C/O abd pain. PT notes associated decr flatulence, recent constipation, nausea, dry heaves. She last passed stool last night , noting only a small amount of stool that was watery in quality. Pain today described as similar to pa in with prior sbo TECHNIQUE: Imaging protocol: Axial computed tomography images of the abdomen and pelvis with intravenous contrast. Coronal and sagittal reformatted images were created and reviewed. COMPARISON: No relevant prior studies available. FINDINGS: Liver: Normal. No mass. Gallbladder and bile ducts: Cholecystectomy. There is a mild, expected degree of intrahepatic and common bile duct dilation. Pancreas: Normal. No ductal dilation. Spleen: Normal. No splenomegaly. Adrenals: Normal. No mass. Kidneys and ureters: Normal. No hydronephrosis. Stomach and bowel: Extensive distal small bowel mucosal enhancement, fluid distention, and proximal colonic mucosal enhancement and fluid distention. Suggest active inflammatory bowel disease. Appendix: Appendectomy. Intraperitoneal space: Small amount of free fluid in the lower abdomen and pelvis and interloop fluid. Vasculature: Normal. No abdominal aortic aneurysm. Lymph nodes: Normal. No enlarged lymph nodes. Bladder: Unremarkable as visualized. Reproductive: Hysterectomy. Bones/joints: No acute fracture. No dislocation. Soft tissues: Unremarkable. IMPRESSION: 1. Extensive distal small bowel mucosal enhancement, fluid distention, and proximal colonic mucosal enhancement and fluid distention. Suggest active inflammatory bowel disease. 2. Small amount of free fluid in the lower abdomen and pelvis and interloop fluid. Thank you for allowing us to participate in the care of your patient. Dictated and Authenticated by: Moody Sifuentes MD 01/22/2019 2:39 AM Central Time ([place] & [place]) FINAL REPORT CT ABDOMEN AND PELVIS WITH IV AND ORAL CONTRAST PERFORMED ON AN EMERGENCY BASIS: Date: 01/22/19 Time: 0126 hours HISTORY: Abdominal pain. Crohn's disease. COMPARISON: 12/30/2017. FINDINGS/IMPRESSION: Agree with the preliminary report by Dr. Sifuentes from [facility]. Fluid and gaseous distention of mid to distal small bowel loops with distention, fluid, and stool of the right colon. Large stones are again demonstrated within the right colon. Mucosal enhancement suggestive of active inflam matory bowel disease. Small amount of free fluid. Gallbladder surgically absent with associated distention of the biliary system. Code QA. Transcribed Date/Time: 01/22/2019 7:49 AM
[2019-01-22] MEDS: methylPREDNISolone Sod Succ/PF 125 MG/2 ML VIAL IVP SCH (09:10)
[2019-01-22] MEDS: Enoxaparin Sodium 40 MG/0.4 ML SYRINGE SC SCH (09:11)
--- NOTE | 2019-01-22 14:47 | PDOC.PN ---
- Subjective Encounter Start Date: 01/22/19 Encounter Start Time: 13:00 Subjective: Patient examined, reports abdominal pain has improved -: Reports no longer has any nausea -: Denies having any diarrhea, just nausea/dry heaves yesterday - Objective Resuscitation Status - Order Detail: 01/22/19 05:33 Resuscitation Status Routine Resuscitation Status: FULL: Full Resuscitation Vital Signs & Weight: Vital Signs (12 hours) Temp Pulse Resp BP BP Pulse Ox 01/22/19 11:49 98.5 F 60 16 96/55 L 96 01/22/19 07:28 99.3 F 63 16 101/56 L 97 01/22/19 05:33 98.2 F 61 16 113/56 L 96 Weight Admit Weight 66.315 kg Weight 66.315 kg I&O: 01/21/19 01/22/19 01/23/19 06:59 06:59 06:59 Output Total 400 Balance -400 Result Diagrams: 01/21/19 23:28 01/21/19 23:28 Phys Exam - Physical Examination HEENT: PERRLA, moist MMs Neck: no nodes, no JVD Respiratory: clear to auscultation bilateral Cardiovascular: RRR, no significant murmur Gastrointestinal: soft, positive bowel sounds Diffuse tenderness to palpation Musculoskeletal: no edema, pulses present Neurological: non-focal, normal sensation Lymphatic: no nodes Psychiatric: normal affect, A&O x 3 Skin: normal turgor Dx/Plan (1) Nausea Code(s): R11.0 - NAUSEA Status: Resolved (2) Abdominal pain Code(s): R10.9 - UNSPECIFIED ABDOMINAL PAIN Status: Acute Qualifiers: Abdominal location: generalized Qualified Code(s): R10.84 - Generalized abdominal pain (3) Crohns disease Code(s): K50.90 - CROHN'S DISEASE, UNSPECIFIED, WITHOUT COMPLICATIONS Status: Chronic Comment: prior ?right hemicolectomy (4) h/o ileocolic stricture Status: Chronic - Plan cont current plan of care Dr. Salazar from GI has been consulted -: Will continue IV steroids, pain meds as needed -: Recheck labs in AM * .
[2019-01-22] MEDS: Acetaminophen 325 MG TAB PO PRN (15:06)
[2019-01-22] MEDS: Sodium Chloride 0.9% 1,000 ML IV SCH (15:06)
[2019-01-22] MEDS: Propranolol HCl LA 60 MG CAP PO SCH (19:43)
--- NOTE | 2019-01-22 21:46 | CON ---
DATE OF CONSULTATION: CHIEF COMPLAINT: Ms. Crane developed onset of burning epigastric discomfort with radiation up toward chest and reflux a couple days ago. Yesterday evening, the burning worsen and turned into a more of a cramping pain in the upper abdomen and she ultimately came into the emergency room for further care. She has had recurrent episodes of bowel obstructions around once a year over the last 4 or 5 years attributed to adhesions from prior surgeries. She has Crohn's disease and was diagnosed with ileocolonic disease back in the . She has been on azathioprine since the , has not required biologic therapy since then. She has been in remission on a relatively low dose at 100 mg daily. She underwent dilation of an anastomotic stricture at the ileocolonic anastomosis back in 2017. However, her most recent admission a year ago was believed to be due to a small-bowel obstruction more proximal to the anastomosis site. She has had no bowel movement for the last couple of days, but at baseline has had some mild constipation. She has had no blood in the stool. She does get headaches most of the time when she is admitted with similar symptoms and now she again has the headache with this hospitalization. She has taken Dexilant 60 mg as needed over the last several days for reflux symptoms. It helps the reflux symptoms, however, this tends to constipate her. PAST MEDICAL HISTORY: Migraine headaches, Crohn's disease, hyperlipidemia. PAST SURGICAL HISTORY: Colon resection, hysterectomy, hemorrhoidectomy, cholecystectomy. She has had balloon dilation of ileocolonic anastomosis strictures previously. FAMILY HISTORY: Negative for GI malignancy. SOCIAL HISTORY: She has never been a smoker. No alcohol or drugs. ALLERGIES: . OUTPATIENT MEDICATIONS: Include: 1. Azathioprine 100 mg daily. 2. Vitamin D 1000 units daily. 3. Dexilant 60 mg as needed. 4. Estroven. 5. Gabapentin. 6. Probiotic. 7. Propranolol extended release 60 mg at bedtime. 8. Sumatriptan as needed. She has not had this in the last couple of weeks. REVIEW OF SYSTEMS: Negative x10 systems reviewed except as stated in history of present illness. PHYSICAL EXAMINATION: VITAL SIGNS: Temperature 98.1, pulse 67, blood pressure 101/50. GENERAL: She is in no acute distress. Alert and oriented x3. HEENT: Eyes have no scleral icterus. Oropharynx is clear without lesions. NECK: No cervical or supraclavicular lymphadenopathy. LUNGS: Clear to auscultation bilaterally. HEART: Regular rate regular rate and rhythm without murmur. ABDOMEN: Soft. Mild tenderness in the upper abdomen without guarding. Bowel sounds are present. EXTREMITIES: No lower extremity edema. Cranial nerves are grossly intact. LABORATORY DATA: White blood cell count 8.6, hemoglobin 15.8, platelets 198. Creatinine 0.8, bilirubin 1.6, AST 28, ALT 30, alk phos 100. C-reactive protein less than 0.5. IMAGING: She had a CT scan of the abdomen and pelvis performed on admission yesterday that reportedly shows extensive distal small-bowel mucosal enhancement and fluid distention of proximal colon mucosal enhancement and fluid distention concerning for active inflammatory process in the distal small bowel and proximal colon. IMPRESSION: 1. Crohn's disease, which has generally been in remission over the last several years on azathioprine 100 mg daily. However, she has had some recurrent small bowel obstructions that seem to have been more related to adhesive disease than inflammatory disease. 2. Abnormal CT scan showing thickening of the distal small bowel and proximal colon. The vasculature of the mesenteric arteries was reported as normal. The question now is if this truly represents active inflammation of this area or not. Given the repeated hospitalizations about yearly over the last 4 or 5 years, we do need to determine, if she has active inflammatory disease that requires more aggressive treatment than the relatively low-dose azathioprine that she is on. Her C- reactive protein is normal. I will check a fecal calprotectin level, however, really I think at this point she needs a colonoscopy to define the extent of her disease. Also , with the upper abdominal pain and worsening reflux lately, I would rule out peptic ulcer and we will plan EGD and colonoscopy for later this admission when she is able to tolerate adequate liquid intake as her nausea and vomiting improved. RECOMMENDATIONS: 1. She has received IV Solu-Medrol 60 mg daily so far. She has clinically improved today. However, I am unsure if her rapid improvement is actually secondary to the steroids. 2. Continue azathioprine. 3. She requests that we restart her propranolol this evening for headaches and I will write an order for that. PLAN: Colonoscopy possibly for Friday, if she is tolerating oral liquids adequately tomorrow. Job ID: [id number] [facility]
[2019-01-23] MEDS: Sodium Chloride 0.9% 1,000 ML IV SCH ×2 (05:53→20:15)
[2019-01-23 06:38] LABS: #Eosinphils 0.1 thou/uL (0.0-0.7); #Monocytes 0.3 thou/uL (0.11-0.59); #Neutrophils 4.4 thou/uL (1.40-6.50); %Basophils 0.1 % (0.0-1.0); %Eosinophils 1.3 % (0.0-10.0); %Lymphocytes 16.7 % (21.0-51.0); %Monocytes 5.4 % (0.0-10.0); %Neutrophils 76.5 % (42.0-75.0); Hemoglobin 13.1 g/dL (12.0-16.0); Mean Corpuscular HGB CONC 32.4 g/dL (32.0-36.0); Mean Corpuscular Hemoglobin 32.5 pg (27.0-31.0); Mean Platelet Volume 8.3 fL (7.4-10.4); Platelet Count 171 thou/uL (130-400); RBC Distribution Width 13.4 % (11.5-14.5); Red Blood Cell (RBC) Count 4.03 mill/uL (4.20-5.40); White Blood Cell (WBC) Count 5.7 thou/uL (4.8-10.8)
[2019-01-23 06:58] LABS: Anion Gap 10 mmol/L (10-20); BUN (Urea Nitrogen) 7 mg/dL (9.8-20.1); Calc. Creatinine Clearance 92 mL/min (70-130); Calcium 8.6 mg/dL (7.8-10.44); Carbon Dioxide 23 mmol/L (23-31); Chloride 111 mmol/L (98-107); Estimated GFR-MDRD 89; Glucose 92 mg/dL (80-115); Potassium 3.8 mmol/L (3.5-5.1); Sodium 140 mmol/L (136-145)
[2019-01-23] MEDS: methylPREDNISolone Sod Succ/PF 125 MG/2 ML VIAL IVP SCH (08:44)
[2019-01-23] MEDS: Enoxaparin Sodium 40 MG/0.4 ML SYRINGE SC SCH (08:44)
[2019-01-23] MEDS: Acetaminophen 325 MG TAB PO PRN ×2 (10:16→14:26)
[2019-01-23 14:29] LABS: Ref Lab Test Ordered CALPROTECTIN; Reference Lab Name LABCORP
[2019-01-23] MEDS ORDERED: Clopidogrel Bisulfate 75 MG TAB ONE (15:43)
[2019-01-23] MEDS ORDERED: GoLYTELY 4,000 ml Bottle PO SCH (16:45)
--- NOTE | 2019-01-23 16:48 | PDOC.PN ---
- Subjective Encounter Start Date: 01/23/19 Encounter Start Time: 12:40 Feeling better in general. No abdominal pain now. - Objective Resuscitation Status - Order Detail: 01/22/19 05:33 Resuscitation Status Routine Resuscitation Status: FULL: Full Resuscitation Vital Signs & Weight: Vital Signs (12 hours) Temp Pulse Resp BP Pulse Ox 01/23/19 12:00 98.3 F 59 L 16 97/60 96 01/23/19 08:44 98 01/23/19 08:00 98.1 F 61 14 104/62 98 Weight Admit Weight 146 lb 3.2 oz Weight 146 lb 3.2 oz I&O: 01/22/19 01/23/19 01/24/19 06:59 06:59 06:59 Intake Total 450 Output Total 1000 Balance -550 Result Diagrams: 01/23/19 06:17 01/23/19 06:17 Phys Exam - Physical Examination Constitutional: NAD Respiratory: no wheezing, no rales, no rhonchi, clear to auscultation bilateral Cardiovascular: RRR, no significant murmur Gastrointestinal: soft, non-tender, no distention, positive bowel sounds Musculoskeletal: no edema Neurological: non-focal Psychiatric: normal affect, A&O x 3 Dx/Plan (1) Abdominal pain Code(s): R10.9 - UNSPECIFIED ABDOMINAL PAIN Status: Acute Qualifiers: Abdominal location: generalized Qualified Code(s): R10.84 - Generalized abdominal pain (2) Crohns disease Code(s): K50.90 - CROHN'S DISEASE, UNSPECIFIED, WITHOUT COMPLICATIONS Status: Chronic - Plan * Discussed with Dr. Salazar. * Plan is for bowel prep and endoscopy tomorrow to assess the state of the IBD. * Continue steroids, azathioprine.
--- NOTE | 2019-01-23 16:52 | PRG ---
Progress noted for patient Halle Crane. DATE OF SERVICE: 01/23/2019 SUBJECTIVE: Ms. Crane is feeling better. She tolerated a clear liquid diet well. She did have a hard formed stool today and then had looser stool after that. She has had no blood in the stool. No ongoing abdominal pain. OBJECTIVE: VITAL SIGNS: Temperature 98.3, pulse 59, blood pressure 97/60. GENERAL: She is in no acute distress. Alert and oriented x3. HEENT: Eyes have no scleral icterus. LUNGS: Clear to auscultation bilaterally. HEART: Regular rate and rhythm without murmur. ABDOMEN: Soft, nontender, nondistended. Bowel sounds are present. EXTREMITIES: No lower extremity edema. LABORATORY DATA: White blood cell count 5.7, hemoglobin 13.1, platelets 171. Creatinine 0.67. IMPRESSION: Ileocolonic Crohn's disease with prior resection and stricture at the ileocolonic anastomosis previously, which has been dilated in the past. She has also had recurrent small-bowel obstructions with adhesive disease. She was admitted this time with abdominal pain and CT showed thickening of the colon and small bowel. Possibilities include active Crohn's versus infectious process versus ischemic process in this area. She has been given IV steroids. However, I am not certain that her symptoms have actually due to an inflammatory process. RECOMMENDATIONS: 1. Given that her symptoms are greatly improved now, we will try to perform bowel prep tonight for EGD and colonoscopy tomorrow to establish status of her inflammatory bowel disease. Job ID: [id number] MTDD
[2019-01-23] MEDS: Propranolol HCl LA 60 MG CAP PO SCH (20:14)
[2019-01-24] MEDS: methylPREDNISolone Sod Succ/PF 125 MG/2 ML VIAL IVP SCH (08:37)
[2019-01-24] MEDS ORDERED: Promethazine HCl 25 MG/ML VIAL IM PRN (11:10)
[2019-01-24] MEDS ORDERED: Ondansetron HCl/PF 4 MG/2 ML Vial IVP PRN (11:10)
[2019-01-24] MEDS ORDERED: Promethazine HCl 25 MG/ML VIAL SLOW IVP PRN (11:10)
--- NOTE | 2019-01-24 12:09 | OP ---
DATE OF PROCEDURE: 01/24/2019 PROCEDURES PERFORMED: Esophagogastroduodenoscopy with biopsy and bougie dilation of the esophagus and colonoscopy with biopsy and balloon dilation of anastomotic stricture. PREOPERATIVE DIAGNOSIS: Crohn disease with epigastric abdominal pain and recurrent obstructive symptoms and abnormal CT scan. DESCRIPTION OF PROCEDURE: Informed consent was obtained from the patient. She was sedated with total intravenous anesthesia. The bite block was placed, and the endoscope was advanced easily to the second portion of the duodenum, and retroflexion was performed in the stomach. The esophagus was normal except for a Schatzki ring in the distal esophagus. The GE junction was otherwise normal. The stomach was normal including retroflexed views. The pylorus and first and second portions of the duodenum were normal. Duodenal biopsies were taken to rule out celiac disease. A 54-Upper Sorbian Bush dilator was passed through the esophagus. Second-look endoscopy showed an appropriate shallow tear at the Schatzki ring. There was also a small tear at the upper esophagus. The air was suctioned from the stomach, the patient was turned around, rectal exam was performed and was normal. The colonoscope was advanced to the distal sigmoid, where the sigmoid colon had a very fixed flexure around which I could not pass the colonoscope. I exchanged for the therapeutic upper endoscope. With this scope, I was able to advance all the way around to the terminal ileum. There was a tight stricture at the anastomosis from the terminal ileum to the transverse colon. The patient has had a prior right colectomy. The stricture was too tight to pass the endoscope through. The colonic mucosa was normal throughout. The preparation quality was good. I passed a 12 mm pyloric dilation balloon through the stricture and dilated to 12 mm stage III. There is good effect of the stricture. This appears more fibrotic than stenotic and it was a short stricture just at the anastomosis. This does not appear to be a secondary to an active Crohn's type stricture. The dilation effect was good, and I could pass the endoscope through the stricture after dilation. The terminal ileum had retained solid stool in the terminal ileum. Most of the mucosa of the terminal ileum was normal except for there was a thin shallow 2 cm linear ulcer in the terminal ileum few centimeters above the anastomosis. Biopsies were obtained from the terminal ileum. Again, the remainder of the colonic mucosa was normal. Retroflexed views in the rectum were normal. IMPRESSION: 1. Schatzki ring dilated in the distal esophagus to 54-Upper Sorbian (18 mm) with a Bush dilator, otherwise normal esophagogastroduodenoscopy. 2. Duodenal biopsies were taken to rule out celiac disease. 3. A fixed sigmoid flexure was present through which I could not pass a colonoscope; however, I could pass the therapeutic upper endoscope to complete the procedure. 4. Tight anastomotic stricture that was too tight to pass the endoscope through. This was dilated to 12 mm with a balloon dilator with good effect. 5. Retained solid stool above the stricture. 6. Shallow 2 cm linear ulceration of the terminal ileum, likely related to her Crohn disease; however, the mucosa around this is not otherwise inflamed. 7. Status post right colectomy. 8. Otherwise normal colon mucosa. RECOMMENDATIONS: 1. Daily MiraLAX. We will try to dissolve the solid stool retained above the anastomotic stricture. 2. Low-fiber diet. 3. Given the terminal ileum ulceration, we will complete a steroid taper and increased azathioprine. 4. Await histopathology. 5. MiraLAX daily. 6. Repeat dilation as needed. 7. Proton pump inhibitor daily. 8. Follow up in GI clinic. Job ID: [id number]
[2019-01-24] MEDS: Sodium Chloride 0.9% 1,000 ML IV SCH (12:23)
--- NOTE | 2019-01-24 13:00 | PDOC.PN ---
- Subjective Encounter Start Date: 01/24/19 Encounter Start Time: 12:59 Ms. Crane was seen today in follow-up of Crohn's disease flare. She does not have any complaints. She denies abdominal pain, or nausea or vomiting. - Objective Resuscitation Status - Order Detail: 01/22/19 05:33 Resuscitation Status Routine Resuscitation Status: FULL: Full Resuscitation MAR Reviewed: Yes Vital Signs & Weight: Vital Signs (12 hours) Temp Pulse Resp BP BP Pulse Ox 01/24/19 11:54 97.5 F L 50 L 13 107/53 L 95 01/24/19 07:45 98.0 F 55 L 13 99/55 L 94 L 01/24/19 06:00 98.3 F 63 18 98/58 L 96 01/24/19 04:00 17 Weight Admit Weight 146 lb 3.2 oz Weight 146 lb 3.2 oz I&O: 01/23/19 01/24/19 01/25/19 06:59 06:59 06:59 Intake Total 450 5480 Output Total 1000 Balance -550 5480 Result Diagrams: 01/23/19 06:17 01/23/19 06:17 Phys Exam - Physical Examination HEENT: PERRLA Respiratory: no wheezing, no rales, no rhonchi, clear to auscultation bilateral Cardiovascular: RRR, no significant murmur, no rub Gastrointestinal: soft, non-tender, no distention, positive bowel sounds Musculoskeletal: pulses present, edema present trace pedal edema, no erythema no warmth Neurological: non-focal, normal sensation Dx/Plan (1) Crohns disease Code(s): K50.90 - CROHN'S DISEASE, UNSPECIFIED, WITHOUT COMPLICATIONS Status: Chronic Comment: prior ?right hemicolectomy (2) Schatzki's ring Code(s): K22.2 - ESOPHAGEAL OBSTRUCTION Status: Acute (3) Small bowel obstruction Code(s): K56.69 - OTHER INTESTINAL OBSTRUCTION * DO NOT USE * Status: Acute - Plan * Acute flare of Crohn's disease- EGD and Colonoscopy findings noted * Will continue steroid una * Schatkzi ring was dilated, and will continue Protonix * Will place on a low fiber diet * Home when OK with GI .
[2019-01-24] MEDS: azaTHIOprine 50 MG TAB PO SCH (13:41)
[2019-01-24] MEDS: Enoxaparin Sodium 40 MG/0.4 ML SYRINGE SC SCH (13:41)
[2019-01-24] MEDS ORDERED: Lidocaine 1% PF 5 ML VIAL ONE (16:41)
[2019-01-24] MEDS ORDERED: PROPOFOL 200 MG/20 ML VIAL ONE (16:41)
[2019-01-24] MEDS: Propranolol HCl LA 60 MG CAP PO SCH (19:52)
[2019-01-24] MEDS: Acetaminophen 325 MG TAB PO PRN (22:03)
[2019-01-25] MEDS: Sodium Chloride 0.9% 1,000 ML IV SCH (00:10)
[2019-01-25 07:42] VITALS: BP 108/67; TEMP 97.9
[2019-01-25] MEDS: Enoxaparin Sodium 40 MG/0.4 ML SYRINGE SC SCH (08:07)
[2019-01-25] MEDS: azaTHIOprine 50 MG TAB PO SCH (08:07)
[2019-01-25] MEDS: methylPREDNISolone Sod Succ/PF 125 MG/2 ML VIAL IVP SCH (08:08)
[2019-01-25] MEDS ORDERED: azaTHIOprine 50 MG TAB PO SCH (10:30)
--- NOTE | 2019-01-25 12:11 | PRG ---
DATE OF SERVICE: 01/25/2019 SUBJECTIVE: Ms. Crane is tolerating her diet well. She has no abdominal pain. OBJECTIVE: VITAL SIGNS: Temperature 97.9, pulse 77, and blood pressure 108/67. GENERAL: She is in no acute distress. Alert and oriented x3. LUNGS: Clear to auscultation bilaterally. HEART: Regular rate and rhythm without murmur. ABDOMEN: Soft, nontender, and nondistended. Bowel sounds are present. EXTREMITIES: No lower extremity edema. IMPRESSION: 1. Anastomotic stricture at the ileocecal valve balloon to 12 mm with a balloon dilator. Check good effect with the dilation. She has solid stool retained above the level of the stricture. 2. Crohn disease for which she has only required azathioprine low-dose 100 mg daily over the last several years. Given the ulceration of the terminal ileum, I will complete a steroid taper with prednisone 40 mg daily for five days, then 30 for five days, 20 for five days, 10 for five days, and 5 for five days and then discontinue. I will increase azathioprine from 100 mg daily to 125 mg daily. 3. Constipation. 4. Esophageal ring and reflux. I dilated the esophageal ring with a Bush dilator to 18 mm with good effect. She states that the Dexilant that she has been on more recently seems to worsen her constipation. She can transition to omeprazole 40 mg daily instead. RECOMMENDATIONS: 1. Prednisone taper as stated above. 2. Increase azathioprine to 125 mg daily. 3. MiraLAX 17 g twice daily. 4. Omeprazole 40 mg daily. This can be also increased to twice daily if necessary. 5. Follow up in GI clinic in 1 month. Job ID: [id number]
--- NOTE | 2019-01-25 12:28 | PDOC.PN ---
- Subjective Encounter Start Date: 01/25/19 Encounter Start Time: 12:26 Ms. Crane was seen today in follow-up of Crohn's disease flare. She does not have any complaints. - Objective Resuscitation Status - Order Detail: 01/22/19 05:33 Resuscitation Status Routine Resuscitation Status: FULL: Full Resuscitation MAR Reviewed: Yes Vital Signs & Weight: Vital Signs (12 hours) Temp Pulse Resp BP Pulse Ox 01/25/19 07:41 97.9 F 77 18 108/67 97 Weight Admit Weight 146 lb 3.2 oz Weight 145 lb 1 oz I&O: 01/24/19 01/25/19 01/26/19 06:59 06:59 06:59 Intake Total 5480 3080 Balance 5480 3080 Result Diagrams: 01/23/19 06:17 01/23/19 06:17 Phys Exam - Physical Examination HEENT: PERRLA Respiratory: no wheezing, no rales, no rhonchi, clear to auscultation bilateral Cardiovascular: RRR, no significant murmur, no rub Gastrointestinal: soft, non-tender, no distention, positive bowel sounds Musculoskeletal: no edema Dx/Plan (1) Crohns disease Code(s): K50.90 - CROHN'S DISEASE, UNSPECIFIED, WITHOUT COMPLICATIONS Status: Chronic Comment: prior ?right hemicolectomy (2) Schatzki's ring Code(s): K22.2 - ESOPHAGEAL OBSTRUCTION Status: Acute (3) Small bowel obstruction Code(s): K56.69 - OTHER INTESTINAL OBSTRUCTION * DO NOT USE * Status: Acute - Plan * Crohn's Disease- clinically stable * She can be discharged home today..
--- NOTE | 2019-01-25 14:49 | DIS ---
DATE OF ADMISSION: 01/22/2019 DATE OF DISCHARGE: 01/25/2019 PRIMARY CARE PHYSICIAN: Dr. Jonathon Vasquez. DISCHARGE DISPOSITION: Home. PRIMARY DISCHARGE DIAGNOSES: 1. Crohn's flare. 2. Intestinal stricture. 3. History of migraine. DISCHARGE MEDICATIONS: 1. Prednisone taper. 2. Azathioprine was increased to 125 mg daily. 3. Zofran 4 mg q.4 as needed. 4. Inderal LA 60 mg daily. 5. Multivitamin once a day. 6. Lactobacillus one capsule daily. 7. Vitamin D3 of 1000 units daily. 8. Biotin 5 mg daily. PROCEDURES DONE DURING ADMISSION: The patient had a CT scan of the abdomen and pelvis, in which there was an evidence of extensive small bowel mucosal enhancement, fluid distention and proximal colonic mucosal enhancement suggestive of active inflammatory bowel disease. There was a small amount of free fluid in the lower abdomen. The patient also had an upper and lower endoscopy. The upper endoscopy demonstrated a Schatzki's ring in the distal esophagus, which was dilated with a Bush dilator. Duodenal biopsies were taken to rule out celiac disease. There was a fixed sigmoid flexure and a tight anastomotic stricture, which was dilated and a shallow linear ulcer of the terminal ileum, otherwise a normal colon. CODE STATUS: Full code. ALLERGIES: TO DEXTROSE, MORPHINE, PHENOBARBITAL, SUCROSE, SCOPOLAMINE, ATROPINE, AND PSYLLIUM. HOSPITAL COURSE: Ms. Crane is a pleasant 63-year-old female, who presented to the emergency room complaining of severe abdominal pain as well as nausea and vomiting. She was evaluated in the ER. She had a CT scan of the abdomen and pelvis, which demonstrated findings consistent with a Crohn's disease flare. She was found to have an area concerning for a stricture. GI was consulted. The patient was placed on IV fluids as well as IV steroids. She improved over the course of the next couple of days. Stool studies were done, which were negative for Clostridium and Campylobacter. She underwent EGD and colonoscopy with dilation of a Schatzki's ring as well as dilatation of an anastomotic stricture. She tolerated these procedures well and was able to tolerate a low-fiber diet and the following day, she was able to be discharged home and will be discharged home on a slow taper. Job ID: [id number]
[2019-01-26] MEDS ORDERED: predniSONE 20 MG TAB PO SCH (08:00)
[2019-01-26] MEDS ORDERED: azaTHIOprine 50 MG TAB PO SCH (09:00)
== END 2019-01-25 14:58 | disposition home or self-care (01) | DRG 386 ==
LOC: ERS 23:00 → OBSVTOIN 01-22 02:58 → 2SW 01-22 02:58 → T4-B 01-22 18:49
PROVIDERS: ADMIT Hospitalist; ATTEND Hospitalist
PROC: 0DB98ZX Excision of Duodenum, Via Natural or Artificial Opening Endoscopic, Diagnostic (ICD-10-PCS; principal; 2019-01-24)
PROC: 0DBB8ZX Excision of Ileum, Via Natural or Artificial Opening Endoscopic, Diagnostic (ICD-10-PCS; 2019-01-24)
PROC: 0D738ZZ Dilation of Lower Esophagus, Via Natural or Artificial Opening Endoscopic (ICD-10-PCS; 2019-01-24)
PROC: 0DBL8ZX Excision of Transverse Colon, Via Natural or Artificial Opening Endoscopic, Diagnostic (ICD-10-PCS; 2019-01-24)
PROC: 0D7B8ZZ Dilation of Ileum, Via Natural or Artificial Opening Endoscopic (ICD-10-PCS; 2019-01-24)
PROC: 0D7L8ZZ Dilation of Transverse Colon, Via Natural or Artificial Opening Endoscopic (ICD-10-PCS; 2019-01-24)
DX: K50.90 Crohn's disease, unspecified, without complications (principal); K56.699 Other intestinal obstruction unspecified as to partial versus complete obstruction; K63.3 Ulcer of intestine; G43.909 Migraine, unspecified, not intractable, without status migrainosus; E78.5 Hyperlipidemia, unspecified; K22.2 Esophageal obstruction; K59.00 Constipation, unspecified; K21.9 Gastro-esophageal reflux disease without esophagitis; Z90.49 Acquired absence of other specified parts of digestive tract; Z90.710 Acquired absence of both cervix and uterus; Z88.5 Allergy status to narcotic agent; Z88.8 Allergy status to other drugs, medicaments and biological substances
CPT/HCPCS: 36415; 74177; 80048; 80053; 81003; 81015; 83605; 83630; 85025; 86140; 87045; 87046; 87086; 87177; 87449; 87899; 88305; 96361; 96374; 96375; 96376; C1726; J1650; J2270; J2405; J2550; J2930; J3010; J7500